=== PATIENT | male | born 1985 | race American Indian/Alaskan Native ===

== ENCOUNTER 2017-06-26 18:01 | Emergency (ER) | payer SELFPAY ==
[2017-06-26] MEDS ORDERED: NACL 0.9% 1000 ML 2,000 ML ONE (18:07)
[2017-06-26] MEDS ORDERED: ZOFRAN ONE (18:08)
[2017-06-26] MEDS ORDERED: MORPHINE ONE (18:08)
[2017-06-26] MEDS ORDERED: BOOSTRIX IM ONE (18:09)
[2017-06-26] MEDS ORDERED: XYLOCAINE 2% INFILTRATI ONE (18:09)
[2017-06-26] MEDS ORDERED: NACL 0.9% 1000 ML 1,000 ML IV ONE ×2 (18:21→18:22)
[2017-06-26 18:22] VITALS: BP 153/108
[2017-06-26] MEDS ORDERED: MORPHINE IV ONE (18:22)
[2017-06-26] MEDS ORDERED: ZOFRAN IV ONE (18:23)
[2017-06-26 18:28] LABS: Basophils % (Auto) 0.8 % (0.0-1.8); Eosinophils % (Auto) 0.7 % (0.0-4.3); Hematocrit 44.3 % (35.5-45.6); Hemoglobin 14.8 gm/dl (11.8-15.2); Mean Corpuscular HGB Conc 34 % (32-34); Mean Corpuscular Hemoglobin 30 pg (28-32); Mean Corpuscular Volume 91 fl (84-94); Platelet Count 158 K/mm3 (140-440); Red Blood Count 4.87 M/mm3 (3.65-5.03); Red Cell Distribution Width 13.8 % (13.2-15.2); White Blood Count 6.8 K/mm3 (4.5-11.0)
[2017-06-26 18:40] LABS: Anion Gap 17 mmol/L; BUN/Creatinine Ratio 12.22; Blood Urea Nitrogen 11 mg/dL (9-20); Calcium 9.2 mg/dL (8.4-10.2); Carbon Dioxide 24 mmol/L (22-30); Chloride 105.5 mmol/L (98-107); Glucose 90 mg/dL (75-100); Potassium 3.7 mmol/L (3.6-5.0); Sodium 143 mmol/L (137-145)
[2017-06-26] MEDS ORDERED: ceFAZolin 2 GM in NACL 0.9% 100 ML IV ONE (18:45)
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
== END 2017-06-26 21:44 | disposition home or self-care (01) ==
LOC: ED 18:01
DX: S51.011A Laceration without foreign body of right elbow, initial encounter (principal); S21.219A Laceration without foreign body of unspecified back wall of thorax without penetration into thoracic cavity, initial encounter; F17.200 Nicotine dependence, unspecified, uncomplicated; F12.10 Cannabis abuse, uncomplicated; X99.1XXA Assault by knife, initial encounter; Y93.9 Activity, unspecified; Y92.89 Other specified places as the place of occurrence of the external cause; Y99.9 Unspecified external cause status
CPT/HCPCS: 12001; 12032; 36415; 71010; 72072; 73080; 80048; 85025; 86850; 86900; 86901; 90471; 90715; 96361; 96365; 96375; 99284; A6021; J0690; J2270; J2405; J7030

== ENCOUNTER 2017-07-07 16:21 | Emergency (ER) | payer SELFPAY ==
[2017-07-07 16:25] VITALS: BP 128/78
--- NOTE | 2017-07-07 17:15 | Emergency Department Report ---
Suture/Staple Removal - HPI Chief Complaint: Laceration/Recheck/Suture Stated Complaint: SUTURE REMOVAL Time Seen by Provider: 07/07/17 16:56 When Sutures or Lydia Placed: 11-14 Days Ago Wound Location: R elbow and upper back ED Review of Systems ROS: Stated complaint: SUTURE REMOVAL Other details as noted in HPI Comment: All other systems reviewed and negative Constitutional: denies: chills, fever Gastrointestinal: denies: nausea, vomiting Musculoskeletal: as per HPI (suture site to back and R elbow, no swelling or drainage ) Skin: denies: change in color ED Past Medical Hx - Past Medical History Previous Medical History?: No - Social History Smoking Status: Current Every Day Smoker Substance Use Type: None - Medications Home Medications: Home Medications Medication Instructions Recorded Confirmed Last Taken Type Cephalexin [Keflex] 1,000 mg PO Q12HR #20 cap 06/26/17 Unknown Rx HYDROcodone/APAP 5-325 [[place] 1 each PO Q6HR PRN #10 tablet 06/26/17 Unknown Rx 5/325] Suture Removal Exam - Exam General: Vital signs noted. No distress. Alert and acting appropriately. Wound: No Pathologic Erythema, No Tenderness, No Drainage, No Pus, No Wound Dehiscence Other Systems: All other systems reviewed and are unremarkable. ED Course Vital Signs 07/07/17 16:23 Temperature 98 F Pulse Rate 72 Respiratory 20 Rate Blood Pressure 128/78 O2 Sat by Pulse 100 Oximetry - Reevaluation(s) Reevaluation #1: 07/07/17 17:12 Three sutures removed from R elbow. Wound remains intact. No immediate complications noted. Site covered with steri-strips 12 sutures removed from pt's upper back. When the 12 suture was removed, less than 1 cm of wound dehiscence noted. Suture removal stopped at this time. PT aware he will need to return in a 2-3 days to have the remaining sutures removed. PT has no questions at this time. - Pulse Oximetry Interpretation Digit-Finger Initial Pulse Oximetry Readin Actions Taken: none ED Recheck MDM - Differential Diagnosis Suture/Staple Removal Critical Care Time: No Critical care attestation.: If time is entered above; I have spent that time in minutes in the direct care of this critically ill patient, excluding procedure time. ED Disposition Clinical Impression: Encounter for removal of sutures Disposition: DC-01 TO HOME OR SELFCARE Is pt being admited?: No Does the pt Need Aspirin: No Condition: Stable Instructions: Suture Removal (ED) Additional Instructions: Return to ED in 2-3 for the removal of the remaining sutures. Referrals: PRIMARY CARE, [Primary Care Provider] - 3-5 Days ERNIE WADE MD [Referring] - 3-5 Days Time of Disposition: 17:16
== END 2017-07-07 17:50 | disposition home or self-care (01) ==
LOC: ED 16:21
DX: S51.011D Laceration without foreign body of right elbow, subsequent encounter (principal); F17.200 Nicotine dependence, unspecified, uncomplicated

== ENCOUNTER 2017-09-09 21:02 | Emergency (ER) | payer OTHER ==
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
[2017-09-10] MEDS ORDERED: FLEXERIL PO ONE (04:01)
[2017-09-10] MEDS ORDERED: MOTRIN PO ONE (04:01)
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
[2017-09-10 05:17] VITALS: BP 144/100
== END 2017-09-10 05:16 | disposition home or self-care (01) ==
LOC: ED 21:02
DX: M54.5 Low back pain (principal); R07.81 Pleurodynia; F17.200 Nicotine dependence, unspecified, uncomplicated
CPT/HCPCS: 72100; 99283